=== PATIENT | female | born 1980 | race Caucasian/White ===

== ENCOUNTER 2020-09-16 19:11 | Emergency (ER) | payer OTHER, MEDICAID ==
[~2020-09-16] VITALS: Ht 162.6 cm; Wt 48.5 kg
[2020-09-16 19:28] VITALS: BP 92/66
[2020-09-16 20:37] LABS: APPEARANCE,URINE CLEAR (CLEAR); BILIRUBIN,URINE NEGATIVE (NEGATIVE); BLOOD, URINE NEGATIVE (NEGATIVE); LEUKOCYTE ESTERASE ,URINE NEGATIVE (NEGATIVE); NITRITE, URINE NEGATIVE (NEGATIVE); PH,URINE 5.5 (5.0-9.0); UGLUCOSE 3+ (NEGATIVE)
[2020-09-16 20:56] LABS: COLOR,URINE STRAW (YELLOW)
[2020-09-16 20:58] LABS: BASOPHILS % (AUTO) 0.4 % (0.0-2.0); EOSINOPHILS # (AUTO) 0.1 K/uL (0-0.4); EOSINOPHILS % (AUTO) 1.7 % (0.0-4.0); HEMATOCRIT 42.4 % (36-48); HEMOGLOBIN 13.5 g/dL (12.0-16.0); LYMPHOCYTES # (AUTO) 2.7 K/uL (2.5-16.5); LYMPHOCYTES % (AUTO) 39.1 % (20.5-51.1); MEAN CORPUSCULAR HEMOGLOBIN 31 pg (27-31); MEAN CORPUSCULAR HGB CONC 32 g/dL (33-37); MEAN CORPUSCULAR VOLUME 95.7 fL (80-94); MONOCYTES # (AUTO) 0.7 K/uL (0.8-1.0); MONOCYTES % (AUTO) 10.3 % (1.7-9.3); NEUTROPHILS # (AUTO) 3.4 K/uL (1.8-7.7); NEUTROPHILS % (AUTO) 48.5 % (42.2-75.2); PLATELET COUNT (AUTO) 377 K/uL (140-450); RED BLOOD CELL COUNT(AUTO) 4.43 MIL/uL (4.20-5.40); RED CELL DISTRIBUTION WIDTH 13.8 % (11.6-13.7)
[2020-09-16 21:19] LABS: ALBUMIN 3.7 g/dL (3.4-5.0); ANION GAP 10.8 (8-16); CARBON DIOXIDE 32.2 mmol/L (21-32); CREATININE 1.1 mg/dL (0.6-1.3); TOTAL BILIRUBIN 0.3 mg/dL (0.0-1.0)
[2020-09-16] MEDS ORDERED: INSULIN LANTUS 100 UNITS/ML 10 ML VIAL SUBQ SCH (21:40)
--- NOTE | 2020-09-16 21:50 | NUR ---
PT MOVED TO [facility]
[2020-09-16] MEDS: LACTATED RINGERS 1,000 ML IV SCH ×4 (22:25→23:41)
--- NOTE | 2020-09-16 23:57 | NUR ---
PT STATING SHE WATNS TO GO HOME AFTER 1000ML OF LR. DR SAID MADE AWARE. ORDERS TO CANCEL 2ND BAG OF LR.
[2020-09-17 00:07] VITALS: BP 92/66
--- NOTE | 2020-09-17 00:07 | NUR ---
Patient discharged with v/s stable. Written and verbal after care instructions given and explained. Patient alert, oriented and verbalized understanding of instructions. Ambulatory with steady gait. All questions addressed prior to discharge. ID band removed. Patient advised to follow up with PMD. Rx of LANTUS given. Patient educated on indication of medication including possible reaction and side effects. Opportunity to ask questions provided and answered.
== END 2020-09-17 00:07 | disposition home or self-care (01) ==
LOC: MED 19:11
DX: E11.65 Type 2 diabetes mellitus with hyperglycemia (principal); Z79.4 Long term (current) use of insulin
CPT/HCPCS: 36415; 80053; 81003; 81025; 83690; 84702; 85025; 96372; 99283

== ENCOUNTER 2021-11-10 09:26 | Inpatient (IN) | payer OTHER, MEDICAID, SELFPAY ==
[~2021-11-10] VITALS: Ht 162.6 cm; Wt 42.6 kg
[2021-11-10 09:48] VITALS: BP 90/65
--- NOTE | 2021-11-10 09:57 | NUR ---
PT AMB TO BED 7.
--- NOTE | 2021-11-10 10:00 | NUR ---
OBTAINED ASSESSMENT W/ UNIFORM CAP OPERATOR QUINN [id number] (ASL)
--- NOTE | 2021-11-10 10:12 | NUR ---
41/F BIB SELF. AA&OX4, AMBULATORY W/ STEADY GAIT, DEAF AND USES MANAGER FOOD; PRESENTS TO ED WITH C/O FATIGUE, URINARY FREQUENCY/INCONTINENCE X6 MONTHS, N/V/D X1WEEK AND ABD PAIN. PATIENT REPORTS ONGOING SYMPTOMS THAT HAVE PROGRESSED WITHIN THE LAST MONTH. -SOB, CP, FEVER. PMH: DM, OVARY REMOVAL (2004) MEDS: PATIENT IS UNABLE TO RECALL NKA
[2021-11-10] MEDS ORDERED: NACL 0.9% 1,000 ML IV ONE (10:15)
--- NOTE | 2021-11-10 10:29 | NUR ---
RT AT PT BEDSIDE FOR ABGS.
--- NOTE | 2021-11-10 11:00 | NUR ---
IV ESTABLISHED, BLOOD COLLECTED AND WALKED TO LAB
--- NOTE | 2021-11-10 11:02 | NUR ---
DR. MORENO AT BEDSIDE WITH TWISTING FRAME OPERATOR
--- NOTE | 2021-11-10 11:11 | NUR ---
DR. MORENO EVALUATED PATIENT VIA [employer] CARD SERVICES SPECIALIST: NENA [id number]
[2021-11-10] MEDS ORDERED: cefTRIAXone 1,000 MG VIAL ONE (11:14)
[2021-11-10 11:27] LABS: BASOPHILS # (AUTO) 0.1 K/uL (0.00-0.22); BASOPHILS % (AUTO) 0.8 % (0.0-2.0); EOSINOPHILS # (AUTO) 0.1 K/uL (0-0.4); EOSINOPHILS % (AUTO) 1.1 % (0.0-4.0); HEMATOCRIT 39.2 % (36-48); HEMOGLOBIN 13.2 g/dL (12.0-16.0); LYMPHOCYTES # (AUTO) 2.7 K/uL (2.5-16.5); LYMPHOCYTES % (AUTO) 32.8 % (20.5-51.1); MEAN CORPUSCULAR HEMOGLOBIN 31 pg (27-31); MEAN CORPUSCULAR HGB CONC 34 g/dL (33-37); MEAN CORPUSCULAR VOLUME 92.5 fL (80-94); MONOCYTES # (AUTO) 0.5 K/uL (0.8-1.0); MONOCYTES % (AUTO) 5.8 % (1.7-9.3); NEUTROPHILS # (AUTO) 4.9 K/uL (1.8-7.7); NEUTROPHILS % (AUTO) 59.5 % (42.2-75.2); PLATELET COUNT (AUTO) 374 K/uL (140-450); RED BLOOD CELL COUNT(AUTO) 4.24 MIL/uL (4.20-5.40); RED CELL DISTRIBUTION WIDTH 12.5 % (11.6-13.7); WHITE BLOOD COUNT (AUTO) 8.3 K/uL (4.8-10.8)
[2021-11-10 11:33] LABS: BILIRUBIN,URINE NEGATIVE (NEGATIVE); BLOOD, URINE NEGATIVE (NEGATIVE); COLOR,URINE YELLOW (YELLOW); LEUKOCYTE ESTERASE ,URINE NEGATIVE (NEGATIVE); NITRITE, URINE NEGATIVE (NEGATIVE); UGLUCOSE 3+ (NEGATIVE)
[2021-11-10 11:36] LABS: ALBUMIN 3.2 g/dL (3.4-5.0); ANION GAP 9.6 (8-16); CARBON DIOXIDE 32.7 mmol/L (21-32); CREATININE 0.8 mg/dL (0.6-1.3); POTASSIUM 4.3 mmol/L (3.5-5.1); TOTAL BILIRUBIN 0.2 mg/dL (0.0-1.0)
[2021-11-10 11:36] LABS: APPEARANCE,URINE SLIGHTLY CLOUDY (CLEAR)
[2021-11-10] MEDS ORDERED: INSULIN REGULAR, HUMAN 100 UNIT/ML VIAL IVP ONE (11:40)
[2021-11-10 11:49] LABS: CALCIUM OXALATE CRYSTALS,UR None Seen /HPF (None Seen); RBC,URINE NONE SEEN /HPF (0-5); TRICHOMONAS,URINE None Seen /HPF (None Seen); URIC ACID CRYSTALS,URINE None Seen /HPF (None Seen); WBC,URINE 16-25 (MOD) /HPF (0-5); YEAST,URINE None Seen /HPF (None Seen)
[2021-11-10 11:50] LABS: COARSE GRANULAR CASTS,URINE None Seen /LPF (None Seen); FINE GRANULAR CASTS,URINE None Seen /LPF (None Seen); HYALINE CASTS, URINE None Seen /LPF (None Seen); OTHER CASTS, URINE None Seen /LPF (None Seen); OTHER CRYSTALS,URINE None Seen /HPF (None Seen); RED BLOOD CELL CASTS,URINE None Seen /LPF (None Seen); TRIPLE PHOSPHATE CRYSTAL,UR None Seen /HPF (None Seen); URINE AMORPHOUS URATE None Seen /HPF (None Seen); WAXY CASTS,URINE None Seen /LPF (None Seen)
--- NOTE | 2021-11-10 12:02 | NUR ---
MILTON SPECIMEN COLLECTED AND TAKEN TO LAB.
--- NOTE | 2021-11-10 12:54 | NUR ---
PT TELE HOLD IN ER ADMITTED BY DR. OGDEN
[2021-11-10] MEDS ORDERED: ONDANSETRON 4 MG/2 ML VIAL IM/IVP PRN (12:55)
[2021-11-10] MEDS ORDERED: HYDROcodone/APAP 7.5/325 MG 1 TAB PO PRN (12:55)
[2021-11-10] MEDS ORDERED: DOCUSATE SODIUM 100 MG GELCAP PO PRN (12:55)
[2021-11-10] MEDS ORDERED: POTASSIUM CHLORIDE 10 MEQ TABER PO PRN (12:55)
[2021-11-10] MEDS ORDERED: INSULIN LANTUS 100 UNITS/ML 10 ML VIAL SUBQ SCH (12:55)
[2021-11-10] MEDS ORDERED: ZOLPIDEM 5 MG TAB PO PRN (12:55)
[2021-11-10] MEDS ORDERED: NACL 0.9% 1,000 ML IV SCH (12:55)
[2021-11-10] MEDS ORDERED: ACETAMINOPHEN 325 MG TAB PO PRN (12:55)
[2021-11-10] MEDS ORDERED: DEXTROSE 50% 50 ML SYR IVP PRN (12:55)
[2021-11-10] MEDS ORDERED: guaiFENesin DM 200/20 MG-10 ML 10 ML UDC PO PRN (12:55)
--- NOTE | 2021-11-10 13:46 | NUR ---
PATIENT IN BED STABLE, HAVING LUNCH AT THIS TIME. ALL NEEDS MET
--- NOTE | 2021-11-10 14:10 | NUR ---
PATIENT SOILED IN BED, PROVIDED WITH CLEAN SHEETS AND DIAPER. ALL PATIENT NEEDS MET AT THIS TIME.
[2021-11-10] MEDS: NACL 0.9% 1,000 ML IV SCH ×2 (14:11→22:55)
--- NOTE | 2021-11-10 15:05 | NUR ---
Pt report given to JENNIFER Coronado. Transfer of care at this time to med surg.
--- NOTE | 2021-11-10 15:07 | NUR ---
RECEIVED PHONE REPORT FROM ER. WAITING PATIENT TO TRANSFER TO UNIT.
--- NOTE | 2021-11-10 15:22 | NUR ---
Patient will be admitted to care of DR OGDEN. Admited to MED SURG . Will go to room 107 B. Belongings list completed. Report to JENNIFER BLANCO.
--- NOTE | 2021-11-10 15:41 | NUR ---
The patient's care was reviewed and supervised by Isabelle Sutton RN.
[2021-11-10 16:00] VITALS: BP 93/70
--- NOTE | 2021-11-10 16:00 | NUR ---
RECEIVED PATIENT FROM ER. CC N/V/D, INCREASE URINE OUTPUT. DX HYPERGLYCEMIA, UTI. USE HAND WRITING TO COMMUNICATE WITH PATIENT. A/A/O X4. RESPIRATORY EVEN AND UNLABORED, ON ROOM AIR. LUNG SOUND CLEAR TO AUSCULTATE. NO SIGN OF DISTRESS NOTED. S1 AND S2 NOTED. ABDOMEN SOFT, NON TENDER. BOWEL SOUND ACTIVE TO ALL QUADRANTS. SKIN WARM, DRY, NON DIAPHORETIC. IV ON RIGHT FA 20G, INTACT AND PATENT, IS INFUSING FLUID ORDER. PATIENT DENIES ANY PAIN OR DISCOMFORT. ABLE TO MAKE NEED KNOWN. MRSA COLLECTED. ORIENTED TO ROOM AND UNIT. PLAN OF CARE DISCUSSED. PATIENT NOD TO AGREE. PRECAUTION IN PLACE. CALL LIGHT WITHIN REACH. WILL CONTINUE TO MONITOR.
[2021-11-10] MEDS: BLOOD GLUCOSE MONITORING 1 DEV DEV FS SCH ×2 (17:22→21:43)
[2021-11-10] MEDS: INSULIN LISPRO SLIDING SCALE 100 UNITS/ML VIAL SUBQ PRN ×2 (17:22→21:45)
--- NOTE | 2021-11-10 17:22 | NUR ---
BS CHECK 365, 10 UNITS OF INSULIN GIVEN TO COVER. PATIENT TOLERATED WELL. PRECAUTION IN PLACE. CALL LIGHT WITHIN REACH. WILL CONTINUE TO MONITOR.
[2021-11-10 18:55] LABS: PROTHROMBIN TIME 8.8 secs (10.8-13.4)
[2021-11-10 19:10] LABS: CHOL/HDL RATIO 3.3 (1-4.5); FREE T4 (FREE THYROXINE) 1.14 ng/dL (0.76-1.46); MAGNESIUM 1.9 mg/dL (1.8-2.4); PHOSPHORUS 3.6 mg/dL (2.5-4.9); THYROID STIMULATING HORMONE 0.95 uIU/mL (0.34-3.74)
--- NOTE | 2021-11-10 19:29 | NUR ---
ENDORSED PATIENT TO HEAVY TRUCK DRIVER FOR CONTINUITY OF CARE. PATIENT IS STABLE.
--- NOTE | 2021-11-10 19:30 | NUR ---
RECD. RESTING IN BED, AWAKE, A/OX4. HARD OF HEARING, ABLE TO COMMUNICATE BETTER BY WRITING.RESPIRATION EVEN AND UNLABORED. IV OF NS INFUSING AT 100 ML/HR, RIGHT FOREARM G20. DENIES PAIN 0/10.
[2021-11-10 20:00] VITALS: BP 97/65
[2021-11-10 20:06] LABS: BARBITURATE, URINE NEGATIVE ng/ml (NEG <=200); BENZODIAZEPINE, URINE NEGATIVE ng/mL (NEG <=200); CANNABINOID, URINE NEGATIVE ng/mL (NEG <=50); COCAINE, URINE NEGATIVE ng/mL (NEG <=300); OPIATE, URINE NEGATIVE ng/mL (NEG <=2000); PHENCYCLIDINE SCREEN,URINE NEGATIVE ng/mL (NEG <=25)
--- NOTE | 2021-11-10 21:30 | NUR ---
SNACK GIVEN FOR THE NIGHT, ATE 100%.
--- NOTE | 2021-11-11 | NUR ---
SLEEPING COMFORTABLY IN BED. RESPIRATION EVEN AND UNLABORED.
--- NOTE | 2021-11-11 03:00 | NUR ---
SLEEPING ON HER RIGHT SIDE, WAKEN UP TO CHANGED POSITION, IV IS ALARMING.
[2021-11-11 04:00] VITALS: BP 102/65
--- NOTE | 2021-11-11 06:30 | NUR ---
ABLE TO SLEEP WELL. CONDITION REMAIN STABLE.
[2021-11-11] MEDS: BLOOD GLUCOSE MONITORING 1 DEV DEV FS SCH ×5 (06:47→20:10)
[2021-11-11] MEDS: INSULIN LISPRO SLIDING SCALE 100 UNITS/ML VIAL SUBQ PRN ×4 (06:51→20:20)
[2021-11-11 07:14] LABS: BASOPHILS % (AUTO) 0.3 % (0.0-2.0); EOSINOPHILS # (AUTO) 0.2 K/uL (0-0.4); EOSINOPHILS % (AUTO) 1.7 % (0.0-4.0); HEMOGLOBIN 11.6 g/dL (12.0-16.0); LYMPHOCYTES # (AUTO) 3.1 K/uL (2.5-16.5); LYMPHOCYTES % (AUTO) 29.9 % (20.5-51.1); MEAN CORPUSCULAR HEMOGLOBIN 31 pg (27-31); MEAN CORPUSCULAR HGB CONC 34 g/dL (33-37); MEAN CORPUSCULAR VOLUME 91.5 fL (80-94); MONOCYTES # (AUTO) 0.6 K/uL (0.8-1.0); MONOCYTES % (AUTO) 5.5 % (1.7-9.3); NEUTROPHILS # (AUTO) 6.5 K/uL (1.8-7.7); NEUTROPHILS % (AUTO) 62.6 % (42.2-75.2); PLATELET COUNT (AUTO) 369 K/uL (140-450); RED BLOOD CELL COUNT(AUTO) 3.72 MIL/uL (4.20-5.40); RED CELL DISTRIBUTION WIDTH 12.6 % (11.6-13.7); WHITE BLOOD COUNT (AUTO) 10.3 K/uL (4.8-10.8)
[2021-11-11 07:39] LABS: ANION GAP 10.7 (8-16); CARBON DIOXIDE 27.6 mmol/L (21-32); CREATININE 0.6 mg/dL (0.6-1.3); POTASSIUM 4.3 mmol/L (3.5-5.1)
--- NOTE | 2021-11-11 07:40 | NUR ---
ENDORSED TO AM NURSE FOR CONTINUITY OF CARE.
[2021-11-11 08:00] VITALS: BP 107/69
--- NOTE | 2021-11-11 08:41 | NUR ---
PATIENT HAS BEEN SCREENED AND CATEGORIZED HIGH NUTRITION RISK. PATIENT WILL BE SEEN WITHIN 1-2 DAYS OF ADMISSION. /12/31 REFERRAL RECEIVED FOR UNINTENTIONAL WEIGHT LOSS AND UNCONTROLLED DIABETES UBALDO [address]
[2021-11-11] MEDS: PANTOPRAZOLE 40 MG TABEC PO SCH (09:04)
[2021-11-11] MEDS: INSULIN LANTUS 100 UNITS/ML 10 ML VIAL SUBQ SCH (09:04)
[2021-11-11] MEDS: NACL 0.9% 1,000 ML IV SCH ×2 (09:04→18:27)
--- NOTE | 2021-11-11 09:15 | NUR ---
PATIENT STATED IT WAS OKAY TO PROVIDE FAMILY FRIEND- SUSAN GARCIA WITH UPDATES. [phone]. SUSAN STATED SHE IS CONCERNED FOR PTS SAFETY AND HEALTH. STATED PT IS LIVING IN HER CAR FOR THE PAST FEW MONTHS.WILL FOLLOW UP WITH ELECTRICIAN JOURNEYMAN WIREMAN AND .
[2021-11-11 10:06] LABS: T4 (THYROXINE) 8.8 ug/dL (4.5-12.0)
--- NOTE | 2021-11-11 14:55 | NUR ---
11/11/21 RD INITIAL ASSESSMENT COMPLETED PLEASE REFER TO NUTRITION ASSESSMENT UNDER CARE ACTIVITY FOR ESTIMATED NUTRITIONAL NEEDS. 1. CONTINUE [facility] 60GM DIET TOLERATED 2. RECOMMEND GLUCERNA 1XDAY FOR RECENT WEIGHT LOSS 3. RD TO FOLLOW-UP 3-5 DAYS, MODERATE RISK UBALDO CHAVES RD
--- NOTE | 2021-11-11 15:11 | NUR ---
PT GIVEN BED BATH, ORAL CARE COMPLETE, REMINDED TO REPOSITION SELF Q2, GIVEN SNACKS, NO ACUTE DISTRESS, WILL CONTINUE TO MONITOR
--- NOTE | 2021-11-11 15:45 | NUR ---
DC PLANNING PATIENT IS A 41 YEAR OLD FEMALE ADMITTED ON 11/10/2021 DUE COMPLAINING ABOUT ABDOMINAL PAIN AND FEVER RELATED TO UTI. (PATIENT HAS DEAFNESS HOWEVER; IS ABLE TO COMMUNICATE WELL BY ELECTRONIC DEVICES AND WRITING). SW MEET WITH PATIENT TO DISCUSS AND GATHER HER COLLATERAL INFORMATION PATIENT WAS AWAKE AND ALERT; PATIENT HAS DEAFNESS BUT IS REALLY RESOURCEFUL AND IS ABLE TO COMMUNICATE BY ELECTRONIC DEVICES AND WRITING PER PATIENT SHE IS HOMELESS FOR SOMETIME AND SHE WAS IN HER WAY TO [place]AR [facility] WHERE SHE HAS FRIENDS AND FAMILY. PATIENT STATED THAT MUST OF HER FAMILY IS IN [place] AND SHE DO NOT GET ALONG WITH HER FAMILY DUE TO HER WAY OF LIVING THAT BRINGS CONFLICT. PATIENT DECLINED A.D. INF. PACKET PROVIDED BY [facility]. PATIENT'S ONLY EMERGENCY CONTACT IS HER MOTHER HENRI ESCUDERO AT ON CHART. PATIENT STATED THAT SHE HAS NOT BEEN CONSISTENT WITH HER MEDICATIONS FOR HER DIABETES, LAST TIME SHE SAW HER PCP WAS ABOUT 1 YEAR AGO IN [place]. PER PATIENT SHE HAS NO ISSUES GETTING HER MEDICATIONS HOWEVE, FORGETS TO TAKE THEM. PATIENT ALSO WROTE WHEN COMMUNICATING WITH SW ABOUT NOT HAVING OR NEEDING ANY DME. SW PROVIDED PATIENT WITH HOMELESS RESOURCES AND EMERGENCY BASIC INFORMATION PATIENT WAS HAPPY ABOUT RESOURCES HOWEVER; REPORTED THAT SHE HAS A PLAN TO GO TO HIS FAMILY MEMBERS HOME IN [facility] WHEN SHE IS READY TO DC FROM [facility]. SW WILL FOLLOW UP NEEDED.
[2021-11-11 16:00] VITALS: BP 93/50
[2021-11-11 20:00] VITALS: BP 93/54
[2021-11-12] MEDS: NACL 0.9% 1,000 ML IV SCH ×2 (03:29→15:26)
[2021-11-12 04:00] VITALS: BP 99/64
[2021-11-12 06:46] LABS: BASOPHILS % (AUTO) 0.3 % (0.0-2.0); EOSINOPHILS # (AUTO) 0.1 K/uL (0-0.4); EOSINOPHILS % (AUTO) 1.6 % (0.0-4.0); HEMATOCRIT 33.6 % (36-48); HEMOGLOBIN 11.3 g/dL (12.0-16.0); LYMPHOCYTES # (AUTO) 2.7 K/uL (2.5-16.5); LYMPHOCYTES % (AUTO) 30.9 % (20.5-51.1); MEAN CORPUSCULAR HEMOGLOBIN 31 pg (27-31); MEAN CORPUSCULAR HGB CONC 34 g/dL (33-37); MEAN CORPUSCULAR VOLUME 92.3 fL (80-94); MONOCYTES # (AUTO) 0.6 K/uL (0.8-1.0); MONOCYTES % (AUTO) 6.5 % (1.7-9.3); NEUTROPHILS # (AUTO) 5.3 K/uL (1.8-7.7); NEUTROPHILS % (AUTO) 60.7 % (42.2-75.2); PLATELET COUNT (AUTO) 367 K/uL (140-450); RED BLOOD CELL COUNT(AUTO) 3.64 MIL/uL (4.20-5.40); RED CELL DISTRIBUTION WIDTH 12.7 % (11.6-13.7); WHITE BLOOD COUNT (AUTO) 8.8 K/uL (4.8-10.8)
[2021-11-12] MEDS: BLOOD GLUCOSE MONITORING 1 DEV DEV FS SCH ×4 (06:46→20:29)
[2021-11-12] MEDS: INSULIN LISPRO SLIDING SCALE 100 UNITS/ML VIAL SUBQ PRN ×4 (06:47→20:32)
[2021-11-12 07:10] LABS: ANION GAP 10.4 (8-16); CARBON DIOXIDE 26.7 mmol/L (21-32); CREATININE 0.5 mg/dL (0.6-1.3); POTASSIUM 4.1 mmol/L (3.5-5.1)
[2021-11-12 08:00] VITALS: BP 105/59
[2021-11-12] MEDS: INSULIN LANTUS 100 UNITS/ML 10 ML VIAL SUBQ SCH (09:00)
[2021-11-12] MEDS: PANTOPRAZOLE 40 MG TABEC PO SCH (10:20)
[2021-11-12 16:00] VITALS: BP 113/66
--- NOTE | 2021-11-12 19:08 | NUR ---
PLACED PT ON CONTACT PRECAUTIONS FOR URINE CUTLURE, ECOLI AND MDRO. ENDORSED TO TIRE BUSTER NURSE FOR CONTINUITY OF CARE. POC DISCUSSED.
--- NOTE | 2021-11-12 19:10 | NUR ---
RECEIVED PATIENT ASLEEP ON BED, AWAKENS EASILY. BREATHING EVEN AND UNLABORED. IV FLUID ONGOING AT DESIRED RATE. SAFETY MEASURES APPLIED, SIDE RAILS UP X 2 WITH CALL LIGHT WITHIN REACH. WILL CONTINUE TO MONITOR PATIENT.
[2021-11-12 20:00] VITALS: BP 103/68
[2021-11-13] MEDS: NACL 0.9% 1,000 ML IV SCH ×2 (01:25→11:26)
[2021-11-13 04:00] VITALS: BP 111/77
[2021-11-13] MEDS: BLOOD GLUCOSE MONITORING 1 DEV DEV FS SCH ×2 (06:36→11:59)
[2021-11-13] MEDS: INSULIN LISPRO SLIDING SCALE 100 UNITS/ML VIAL SUBQ PRN ×2 (06:40→11:59)
[2021-11-13 07:11] LABS: BASOPHILS % (AUTO) 0.3 % (0.0-2.0); EOSINOPHILS # (AUTO) 0.1 K/uL (0-0.4); EOSINOPHILS % (AUTO) 1.5 % (0.0-4.0); HEMATOCRIT 33.3 % (36-48); HEMOGLOBIN 11.2 g/dL (12.0-16.0); LYMPHOCYTES # (AUTO) 2.5 K/uL (2.5-16.5); LYMPHOCYTES % (AUTO) 30.6 % (20.5-51.1); MEAN CORPUSCULAR HEMOGLOBIN 31 pg (27-31); MEAN CORPUSCULAR HGB CONC 34 g/dL (33-37); MEAN CORPUSCULAR VOLUME 92.5 fL (80-94); MONOCYTES # (AUTO) 0.6 K/uL (0.8-1.0); MONOCYTES % (AUTO) 7.4 % (1.7-9.3); NEUTROPHILS % (AUTO) 60.2 % (42.2-75.2); PLATELET COUNT (AUTO) 375 K/uL (140-450); RED CELL DISTRIBUTION WIDTH 12.6 % (11.6-13.7); WHITE BLOOD COUNT (AUTO) 8.2 K/uL (4.8-10.8)
[2021-11-13] MEDS ORDERED: CIPR500T4 PO (07:26)
[2021-11-13 08:00] VITALS: BP 96/59
--- NOTE | 2021-11-13 08:01 | NUR ---
RECEIVED PATIENT, AOX4, DEAF BUT COMMUNICATES WITH WRITING. RESPIRATIONS EVEN AND UNLABORED ON ROOM AIR. VITAL SIGNS STABLE. IV FLUIDS INFUSING. PATIENT DENIES PAIN AT THIS TIME. TOLERATING MEALS WELL WITH NO NAUSEA/VOMITING. AMBULATING INDEPENDENTLY TO BATHROOM, STEADY
[2021-11-13 08:18] LABS: CARBON DIOXIDE 29.6 mmol/L (21-32); CREATININE 0.5 mg/dL (0.6-1.3); POTASSIUM 4.6 mmol/L (3.5-5.1)
[2021-11-13] MEDS: PANTOPRAZOLE 40 MG TABEC PO SCH (08:20)
[2021-11-13] MEDS: INSULIN LANTUS 100 UNITS/ML 10 ML VIAL SUBQ SCH (08:21)
--- NOTE | 2021-11-13 09:30 | NUR ---
RECEIVED DISCHARGE ORDER FOR PATIENT. PT HAS NEVER BEEN ON DIABETIC MEDICATIONS. HAS NEVER DONE INSULIN INJECTIONS, AND IS HOMELESS. NOTIFIED DR CASTILLO, GIVEN ORAL MEDICATIONS. PATIENT SAYS SHE CAN GET A RIDE AROUND 5PM FROM HER COUSIN.
[2021-11-13] MEDS ORDERED: LANTUS SUBQ (10:43)
[2021-11-13] MEDS ORDERED: METF-924 PO (11:03)
[2021-11-13] MEDS ORDERED: GLYB5TAB13 PO (11:03)
--- NOTE | 2021-11-13 16:47 | NUR ---
DISCHARGE INSTRUCTIONS EXPLAINED TO PATIENT, PATIENT GESTURES UNDERSTANDING. NEW MEDICATIONS WITH SIDE EFFECTS EXPLAINED TO PATIENT. PATIENT AGREES TO KNUCKLE BENDER MEDICATIONS FROM [facility]. [facility] SHE WILL RETURN TO HER CAR WHICH IS IN THE PARKING LOT. ALL BELONGINGS SENT WITH PATIENT.
--- NOTE | 2021-11-13 17:10 | NUR ---
PATIENT ESCORTED TO HER CAR IN STABLE CONDITION
== END 2021-11-13 17:00 | disposition home or self-care (01) | DRG 871 ==
LOC: MED 09:26 → EEVIPCON 13:43 → MTU 13:43 → MMU 13:50 → MTU 13:55
PROVIDERS: ADMIT Family Medicine; ATTEND Family Medicine
DX: A41.9 Sepsis, unspecified organism (principal); G93.41 Metabolic encephalopathy; E87.1 Hypo-osmolality and hyponatremia; N39.0 Urinary tract infection, site not specified; F15.10 Other stimulant abuse, uncomplicated; B96.20 Unspecified Escherichia coli [E. coli] as the cause of diseases classified elsewhere; Z20.822 Contact with and (suspected) exposure to COVID-19; E11.65 Type 2 diabetes mellitus with hyperglycemia; E78.2 Mixed hyperlipidemia; T38.3X6A Underdosing of insulin and oral hypoglycemic [antidiabetic] drugs, initial encounter; Y92.89 Other specified places as the place of occurrence of the external cause; Z85.43 Personal history of malignant neoplasm of ovary
CPT/HCPCS: 36415; 36600; 71045; 80048; 80053; 80305; 81001; 82150; 82803; 82948; 83036; 83690; 83735; 83880; 84100; 84436; 84439; 84443; 84479; 84484; 85025; 85610; 85730; 87081; 87086; 93005; 96365; 96372; 96375; 99285; J0696; J1815; J7060; Q0092